=== PATIENT | male | born 1960 | race African-American/Black ===

== ENCOUNTER 2016-07-05 00:47 | Emergency (ER) | payer MEDICAID ==
[~2016-07-05] VITALS: Ht 182.9 cm; Wt 102.0 kg
[2016-07-05] MEDS ORDERED: TRAMADOL 50MG TABLET PO ONE (01:30)
[2016-07-05] MEDS ORDERED: HYDROCODONE/ACETAMINOPHEN 5/325MG TABLET PO ONE (03:45)
[2016-07-05 04:44] VITALS: BP 121/89
== END 2016-07-05 04:48 | disposition home or self-care (01) ==
LOC: EDBD 00:47 → ER 01:38
DX: S50.01XA Contusion of right elbow, initial encounter (principal); M25.532 Pain in left wrist; M79.642 Pain in left hand; R07.81 Pleurodynia; R07.9 Chest pain, unspecified; X58.XXXA Exposure to other specified factors, initial encounter; Y93.89 Activity, other specified; Y92.89 Other specified places as the place of occurrence of the external cause; Z87.828 Personal history of other (healed) physical injury and trauma; Z98.890 Other specified postprocedural states
CPT/HCPCS: 71010; 73080; 99284